=== PATIENT | female | born 1975 | race Caucasian/White ===

== ENCOUNTER 2019-06-23 10:22 | Emergency (ER) | payer OTHER ==
--- OUTSIDE RECORDS SUMMARY | 2019-06-23 10:29 | XMS REPORT | Continuity of Care Document ---
:1975 External Reference #:[id number] Author Name Mariola Chan PA Address [address] [facility] [place] [address] Care Team Providers Name Role Phone Jada Viramontes MD - Internal Medicine Care Team Information Field Account Manager Pili Leon MD - Neurology Care Team Information Field Account Manager [phone] Nery Solano MD - Physical Medicine Care Team Information Field Account Manager & Rehabilitation Pema Suazo NP, CNM - Nurse Care Team Information Field Account Manager Practitioner Joe Kang MD - Rheumatology Care Team Information Field Account Manager Problems Active Problems Provider Date Pure hypercholesterolemia Gui Jung M.D. Onset: 01/03/2015 Carpal tunnel syndrome Nery Solano MD Onset: 07/15/2015 Neck pain Nery Solano MD Onset: 07/15/2015 Moderate recurrent major depression Jada Viramontes MD Onset: 09/01/2015 Migraine with typical aura Jada Viramontes MD Onset: 09/01/2015 Mixed hyperlipidemia Jada Viramontes MD Onset: 09/01/2015 Localized, primary osteoarthritis Gui Jung M.D. Onset: 03/01/2016 Aftercare following joint replacement Gui Jung M.D. 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 Gabriel Herbert MD Onset: 09/16/2017 toxoplasmosis Elevated blood-pressure reading without Jessica Solares PA-C Onset: 09/2018 diagnosis of hypertension Migraine without aura, not refractory Pema Suazo, MS, Onset: 2018 LINE TECHNICIAN-C, CNM Social History Type Date Description Comments Sex Unknown Tobacco Use Start: Unknown Current Cigarette Smoker 1 Pack Daily Smokeless Tobacco Never Used Smokeless Tobacco ETOH Use Denies alcohol use Tobacco Use Start: Unknown Patient is a current Smokes 1/2 to 1 ppd smoker, smokes every day x 29 years Recreational Drug Use Denies Drug Use Smoking Status Reviewed: 05/29/19 Patient is a current Smokes 1/2 to 1 ppd smoker, smokes every day x 29 years Allergies, Adverse Reactions, Alerts Active Allergies Reaction Severity Comments Date Codeine throat swelling 01/03/2015 Cymbalta rash 01/03/2015 Benzonatate throat swelling 01/03/2015 Viibryd RASH,THROAT SWELLS rash, throat swelling 05/30/2015 Carlos Enrique-Tab Throat swells 05/30/2015 Paxil RASH 05/30/2015 Penicillins throat swelling 05/30/2015 Hydroxyzine Throat swelling 05/30/2015 Gabapentin Throat swelling 05/30/2015 Sumatriptan UNKNOWN 05/30/2015 Trazodone THROAT SWELLS 08/01/2016 Amoxicillin Throat Swelling 09/16/2017 Topiramate hives 09/03/2018 Medications Active Medications SIG Qnty Indications Ordering Date Provider Magnesium take one every day 30caps G43.001 Magali, 05/11/2019 500mg MD Nichole, Capsules PHD Polyethylene Glycol take one package (17 30units K59.00 Soraida Coburn, 3350 gm) with 10 oz of 3350NF Packet water every day for constipation prn Elbow Support Both left and right 2units M77.10 Wander, Jada, 12/02/2018 Left/Right for epicondylitis MD Gastelum Pantoprazole Sodium 1 by mouth every day 30tabs K21.0 Jada Viramontes, 09/[address] Vitamin B Complex take one every day 30tabs G43.001 Jada Viramontes, 2017 MD Tablets TENS Unit use daily as needed 1units M51.86 Jada Viramontes, 11/09/2016 for back pain and MD constantino M54.31 Gemfibrozil take one tablet by 60tabs Jada Viramontes MD 06/29/2015 600mg Tablets mouth twice a day,30 minutes before breakfast and dinner Verapamil HCL ER Take One Capsule By 30caps Jada Viramontes MD 05/30/2015 120mg Caps ER Mouth Every Day For 24HR Migraine Prophylaxis Vitamin D3 take one tablet by 60tabs Jada Viramontes MD 01/03/2015 1000Unit Tablets mouth twice a day Amitriptyline HCL take one tablet by 30tabs Nichole De Los Santos, 100mg Tablets mouth at bedtime , PHD Acetaminophen Extra 2 caps by mouth every Unknown Strength 4-6 hours as needed 500mg Capsules for pain or fever Fish Oil Take One Capsule By 60caps Jada Viramontes MD 500mg Capsules Mouth Twice A Day Wellbutrin XL take one every day 90tabs Unknown 150mg Tablets ER Naomy. 24HR History Medications Prednisone 4 by mouth daily 21tabs Jada Viramontes MD 04/13/2019 - 10mg Tablets x 2 days, then 3 04/21/2019 by mouth daily x 2 days, then 2 by mouth daily x 2 days, 1 by mouth daily x 3 days Medications Administered in Office Medication SIG Qnty Indications Ordering Provider Date Methylprednisolone Grace Whipple, 02/03/2016 (Depomedrol) 80mg injection RPAC Injection Verapamil 2.5MG/ML Nery Solano MD 11/23/2015 Injection Verapamil 2.5MG/ML Nery Solano MD 11/16/2015 Injection Verapamil 2.5MG/ML Nery Solano MD 11/09/2015 Injection Verapamil 2.5MG/ML Nery Solano MD 09/14/2015 Injection Verapamil 2.5MG/ML Nery Solano MD 09/07/2015 Injection Verapamil 2.5MG/ML Nery Solano MD 08/31/2015 Injection Immunizations CPT Code Status Date Vaccine Reaction Lot # [id number] Given 04/08/2018 Influenza Virus Vaccine, Quadrivalent, 36 [id number] Mos+, .[id number] [id number] Given 09/11/2017 Influenza Virus Vaccine Quadrivalent Iiv4 [place] [id number] [address] Given 09/06/2016 Tdap injection [id number] Given 04/10/2016 Influenza Virus Vaccine Split Virus Use For Individual 3Yr Older Vital Signs Date Vital Result Comment 05/29/2019 11:25am BP Systolic Sitting Left Arm 132 mmHg BP Diastolic Sitting Left Arm 92 mmHg Body Temperature 98.7 F Heart Rate 92 /min Respiratory Rate 22 /min Height 63.5 inches 5'3.50" Weight 163.00 lb BMI (Body Mass Index) 28.4 kg/m2 BSA (Body Surface Area) 1.78 m2 [place] body weight in kilograms 53 kg O2 % BldC Oximetry 100 % Ra 04/03/2019 1:31pm BP Systolic Sitting Left Arm 142 mmHg BP Diastolic Sitting Left Arm 78 mmHg Body Temperature 98.2 F Heart Rate 92 /min Respiratory Rate 20 /min Height 63.5 inches 5'3.50" Weight 165.00 lb BMI (Body Mass Index) 28.8 kg/m2 BSA (Body Surface Area) 1.79 m2 [place] body weight in kilograms 53 kg O2 % BldC Oximetry 97 % Results Test Acquired Date Facility Test Result H/L Range Note CBC 04/04/2019 [facility] White Blood 9.8 K/uL Normal 3.1-10.7 1 W/Automated [address] Count Diff [place], [place] [id number] [phone] Red Blood Count 6.32 M/uL High 3.90-5.40 Hemoglobin 12.2 gm/dL Normal 11.6-15.8 Hematocrit 40.4 % Normal 36.0-46.1 Mean Cell Volume 63.9 fl Low 80.9-99.0 Mean Corpuscular HGB 19.3 pg Low 25.9-32.7 Mean Corpuscular HGB Conc 30.2 g/dL Low 30.8-34.3 Platelet Count 371 K/uL High 155-360 Red Cell Distri Width SD 37.0 fl Normal 36-47 Red Cell Distri Width %CV 18.3 % High 11.7-14.4 Mean Platelet Volume 10.4 fl Normal 8.9-12.4 Neut% 67.1 % Normal 40.4-72.8 Lymph % 24.5 % Normal 20.0-42.0 [place] % 4.2 % Low 4.3-13.2 Eo% 3.0 % Normal 0.0-6.6 Bas% 0.7 % Normal 0.0-1.1 Immature Grans 0.5 % Normal 0.0-5.0 NRBC % 0.0 /100WBC < 10/ 100 WBC Neut# 6.60 K/uL Normal 1.8-7.0 Lymph # 2.41 K/uL Normal 1.0-4.0 [place] # 0.41 K/uL Normal 0.3-0.9 Eos # 0.29 K/uL Normal 0.0-0.5 Baso # 0.07 K/uL Normal 0.0-0.1 Immature Grans Absolute 0.05 K/uL NRBC # 0.00 K/uL Laboratory test 04/04/2019 [facility] Rheumatoid < 10.0 Normal 0.0-15.[address] Factor Screen IU/[place] [address] [phone] Systemic Lupus 04/04/2019 [facility] Ra Latex <10.0 0.0-13.[address] Profil [address] Turbid. IU/[place] [address] [phone] Anti-Dna Antibody ([place]) <1 IU/mL 0-9 2 SM Antibody <0.2 AI 0.0-0.9 TEAR DOWN WORKER Antibody <0.2 AI 0.0-0.9 Sjogrens Antibodies (Ssa) <0.2 AI 0.0-0.9 Antichromatin Antibodies <0.2 AI 0.0-0.9 Sjogrens Antibodies (SSB) <0.2 AI 0.0-0.9 Laboratory test 04/04/2019 [facility] Sedimentation Rate 54 mm/hr High 2-40 [address] [place] [address] [phone] C-Reactive Protein,Quant 13.9 mg/L High <3.0 Comprehensive 04/04/2019 [facility] Glucose 99 mg/dL Normal 74-106 Metabolic Panel [address] [place], [place] [id number] [phone] BUN 14 mg/dL Normal 7-18 Creatinine 0.9 mg/dL Normal 0.6-1.3 Glom Filtration Rate, Estimate >60 mL/min >60 If >60 mL/min >60 4 BUN/Creat 15.5 ratio Sodium 138 mmol/L Normal 136-145 Potassium 3.9 mmol/L Normal 3.5-5.1 Chloride 103 mmol/L Normal 98-107 Carbon Dioxide 25 mmol/L Normal 21-32 Anion Gap 10 mEq/L Normal 8-16 Calcium 9.3 mg/dL Normal 8.5-10.1 Total Protein 8.3 g/dL High 6.4-8.2 Albumin 4.3 g/dL Normal 3.4-5.0 Globulin 4.0 g/dL Normal 1.9-4.3 Alb/Glob 1.1 ratio Bilirubin,Total 0.4 mg/dL Normal 0.2-1.0 Sgot/Ast 19 U/L Normal 15-37 SGPT/Alt 39 U/L Normal 12-78 Alkaline Phosphatase 90 U/L Normal 45-117 Slide Review 04/04/2019 [facility] Slide Review . [address] [place] [address] [phone] RBC Morphology Only 04/04/2019 [facility] Polychromasia 0-1+ [address] [place], [place] [id number] [phone] Hypochromia 1+ Poikilocytosis 1+ Anisocytosis 1+ Microcytosis 1+ Macrocytosis 0-1+ Schistocytes 0-1+ Tear Drop Cells 0-1+ Stomatocyte 0-1+ Lyme Igg & Igm By 04/04/2019 [facility] Lyme AB Igg By Western . Western Blot [address] [place], [place] [address] [phone] P93 AB Absent . P66 AB Absent . P58 AB Absent . P45 AB Absent . P41 AB Absent . P39 AB Absent . P30 AB Absent . P28 AB Absent . P23 AB Absent . P18 AB Absent . Lyme Igg WB Interpretation Negative . 6 Lyme AB Igm By Western Blot . P41 AB Absent . P39 AB Absent . P23 AB Absent . Lyme Igm WB Interpretation Negative . 7 Slide Review 12/03/2018 [facility] Slide Review (SEE NOTE) 8, [address] [place] [address] [phone] Laboratory test 12/03/2018 [facility] Magnesium 1.9 mg/dL Normal 1.8-[address] [place], [place] [address] [phone] Vitamin B12 And 12/03/2018 [facility] Vitamin B12 376 pg/mL Normal 193-[address] [place] [address] [phone] Folic Acid > 20.0 ng/mL High 3.1-17.5 Glycohemoglobin 12/03/2018 [facility] Glycohemoglobin 5.9 % Normal 4.2-6.[address] (A1c) [place], [place] [address] [phone] eAG 123 mg/dL Comprehensive Metabolic 12/03/2018 [facility] Glucose 111 mg/dL High 74-[address] [place] [address] [phone] BUN 15 mg/dL Normal 7-18 Creatinine 1.0 mg/dL Normal 0.6-1.3 Glom Filtration Rate, Estimate >60 mL/min >60 If >60 mL/min >60 11 BUN/Creat 15.0 ratio Sodium 136 mmol/L Normal 136-145 Potassium 4.2 mmol/L Normal 3.5-5.1 Chloride 103 mmol/L Normal 98-107 Carbon Dioxide 25 mmol/L Normal 21-32 Anion Gap 8 mEq/L Normal 8-16 Calcium 9.6 mg/dL Normal 8.5-10.1 Total Protein 8.0 g/dL Normal 6.4-8.2 Albumin 4.3 g/dL Normal 3.4-5.0 Globulin 3.7 g/dL Normal 1.9-4.3 Alb/Glob 1.2 ratio Bilirubin,Total 0.4 mg/dL Normal 0.2-1.0 Sgot/Ast 20 U/L Normal 15-37 SGPT/Alt 36 U/L Normal 12-78 Alkaline Phosphatase 81 U/L Normal 45-117 LDL Cholesterol Profile 12/03/2018 [facility] Cholesterol 194 mg/dL <[address] [place] [address] [phone] Triglycerides 186 mg/dL High <150 13 HDL Cholesterol 30 mg/dL Low >40 14 LDL-Cholesterol 127 mg/dL < 100 15 Laboratory 12/03/2018 [facility] Vitamin 30.9 30.0-100.0 16 test finding [address] D,25-Hydroxy ng/[place] [address] [phone] CBC 12/03/2018 [facility] White Blood 9.0 K/uL Normal 3.1-10.7 W/Automated [address] [place] [address] [phone] Red Blood Count 6.10 M/uL High 3.90-5.40 Hemoglobin 12.1 gm/dL Normal 11.6-15.8 Hematocrit 38.9 % Normal 36.0-46.1 Mean Cell Volume 63.8 fl Low 80.9-99.0 Mean Corpuscular HGB 19.8 pg Low 25.9-32.7 Mean Corpuscular HGB Conc 31.1 g/dL Normal 30.8-34.3 Platelet Count 347 K/uL Normal 155-360 Red Cell Distri Width SD 36.6 fl Normal 36-47 Red Cell Distri Width %CV 17.9 % High 11.7-14.4 Mean Platelet Volume 10.5 fl Normal 8.9-12.4 Neut% 65.2 % Normal 40.4-72.8 Lymph % 25.4 % Normal 20.0-42.0 [place] % 5.2 % Normal 4.3-13.2 Eo% 2.8 % Normal 0.0-6.6 Bas% 0.7 % Normal 0.0-1.1 Immature Grans 0.7 % Normal 0.0-5.0 NRBC % 0.0 /100WBC < 10/ 100 WBC Neut# 5.87 K/uL Normal 1.8-7.0 Lymph # 2.28 K/uL Normal 1.0-4.0 [place] # 0.47 K/uL Normal 0.3-0.9 Eos # 0.25 K/uL Normal 0.0-0.5 Baso # 0.06 K/uL Normal 0.0-0.1 Immature Grans Absolute 0.06 K/uL NRBC # 0.00 K/uL 1 M54.16 F33.1 R53.83 2 Negative <5 Equivocal 5 - 9 Positive >9 3 This result was obtained with an ESR method that is not based on the standard Westergren Method. When comparing results obtained from the traditional Westergren ESR and this method it is important to refer to the reference range for each method. Method: Capillary Photometry 4 Note: Persistent reduction for 3 months or more in an eGFR <60 mL/min/1.73 m2 defines CKD. Patients with eGFR values >/=60 mL/min/1.73 m2 may also have CKD if evidence of persistent proteinuria is present. The original MDRD equation for estimated GFR is not valid for patients less than 18 years of age. Additional information may be found at www.kdoqi.org. 5 Instrument flagged sample for slide review. Less than 10% Bands seen, no other immature WBC's seen. Platelet estimate = NORMAL 6 Positive: 5 of the following [place]-specific bands: 18,23,28,30,39,41,45,58, 66, and 93. Negative: No bands or banding patterns which do not meet positive criteria. 7 Note: An equivocal or positive EIA result followed by a negative Line Blot result is considered NEGATIVE. An equivocal or positive EIA result followed by a positive Line Blot is considered POSITIVE by the CDC. Positive: 2 of the following bands: 23,39 or 41 Negative: No bands or banding patterns which do not meet positive criteria. Criteria for positivity are those recommended by CDC/ASTPHLD. p23=Osp C, n99=mukdldkvm Note: Sera from individuals with the following may cross react in the [place] Line Blot assays: other spirochetal diseases (periodontal disease, leptospirosis, relapsing fever, yaws, and pinta); connective autoimmune (Rheumatoid Arthritis and Systemic Lupus Erythematosus and also individuals with Antinuclear Antibody); other infections (Kinnelon Spotted Fever; Ryan-Kessler Virus, and Cytomegalovirus). Performed at: - [facility] [address] [id number] Activity Aid: Purvi Dunn MD, Phone: [phone] 8 J21.99,INC FINDINGS,D50.9 E55.9 E78.2 R73.9 K21.0 9 Instrument flagged sample for slide review. Less than 10% Bands seen, no other immature WBC's seen. RBC morphology essentially normal. Platelet estimate = NORMAL 10 Elevated levels of HbA1c suggest the need for more aggressive treatment of glycemia. The [place] Diabetes Association recommends that a primary goal of therapy should be a HbA1c of <7% and that physicians should re-evaluate the treatment regimen in patients with HbA1c values consistently >8%. 11 Note: Persistent reduction for 3 months or more in an eGFR <60 mL/min/1.73 m2 defines CKD. Patients with eGFR values >/=60 mL/min/1.73 m2 may also have CKD if evidence of persistent proteinuria is present. The original MDRD equation for estimated GFR is not valid for patients less than 18 years of age. Additional information may be found at www.kdoqi.org. 12 Reference Guidelines*: Desirable: ........... < 200 mg/dL Borderline High: ..... 200-239 mg/dL High: ................ >= 240 mg/dL * The National Cholesterol Education Program (NCEP) 13 Reference Guidelines*: Normal: ............. < 150 mg/dL Borderline High: .... 150-199 mg/dL High: ............... 200-499 mg/dL Very High: .......... > 500 mg/dL * Source: National Cholesterol Education Program (NCEP) 14 Reference Guidelines*: Low HDL: ..... < 40 mg/dL Normal: ..... 40-60 mg/dL Desirable: ... > 60 mg/dL *The National Cholesterol Education Program(NCEP) 15 Reference Guidelines*: Optimal:........... <100 mg/dL Near Optimal....... 100-129 mg/dL Borderline High.... 130-159 mg/dL High............... 160-189 mg/dL Very High.......... >=190 mg/dL * Source: National Cholesterol Education Program (NCEP) 16 Vitamin D deficiency has been defined by the [place] of [employer] and an Endocrine Society practice guideline as a level of serum 25-OH vitamin D less than 20 ng/mL (1,2). The Endocrine Society went on to further define vitamin D insufficiency as a level between 21 and 29 ng/mL (2). 1. IOM ([place] of Medicine). 2010. Dietary reference intakes for calcium and D. [place]: The National Academies Press. 2. Kimo MF, Raquel ENRIQUEZ, Tiffanie KAUR, et al. Evaluation, treatment, and prevention of vitamin D deficiency: an Endocrine Society clinical practice guideline. JCEM. 2010; 96(7):1911-30. Performed at: RN - [facility] [address] [id number] Activity Aid: Purvi Dunn MD, Phone: [phone] Procedures Date Code Description Status 12/03/2018 23917387 Mammogram Completed 12/02/2018 99515 Brief Emotional/Behav Assessment W/ Scoring Doc Per Completed Standard Inst 06/15/2015 [id number] Mammogram Completed Medical Devices Description No Information Available Encounters Type Date Location Provider Dx Diagnosis Office Visit 05/29/2019 Primary Care Mariola Chan R23.8 Other skin changes 11:30a Office NIGHAT Chao F41.9 Anxiety disorder, unspecified M54.5 Low back pain Office Visit 04/03/2019 1:30p Primary Care Dustin M54.16 Radiculopathy , Office NIGHAT Albert lumbar region M54.5 Low back pain Office Visit 12/02/2018 Primary Care Gabriele K21.0 Gastro-esophageal 11:30a Office MS Pema, reflux disease with LINE TECHNICIAN-C, CNM esophagitis E55.9 Vitamin D deficiency, unspecified R20.2 Paresthesia of skin D50.9 Iron deficiency anemia, unspecified R73.9 Hyperglycemia, unspecified E78.2 Mixed hyperlipidemia G43.001 Migraine w/o aura, not intractable, with status migrainosus F17.210 Nicotine dependence, cigarettes, uncomplicated F33.1 Major depressive disorder, recurrent, moderate M77.10 Lateral epicondylitis, unspecified elbow Assessments Date Code Description Provider 05/29/2019 R23.8 Other skin changes Mariola Chan, PA 05/29/2019 F41.9 Anxiety disorder, unspecified Mariola Chan, NIGHAT 05/29/2019 M54.5 Low back pain Mariola Chan, PA 04/03/2019 M54.16 Radiculopathy, lumbar region Mariola Chan, NIGHAT 04/03/2019 M54.5 Low back pain Mariola Chan, PA 12/02/2018 K21.0 Gastro-esophageal reflux disease Gagen, Pema, MS, LINE TECHNICIAN -C, with esophagitis [facility] 12/02/2018 E55.9 Vitamin D deficiency, unspecified Gagen, Pema, MS, LINE TECHNICIAN-C, [facility] 12/02/2018 R20.2 Paresthesia of skin Gagen, Pema, MS, LINE TECHNICIAN-C, [facility] 12/02/2018 D50.9 Iron deficiency anemia, unspecified Gagen, Pema, MS, LINE TECHNICIAN-C, [facility] 12/02/2018 R73.9 Hyperglycemia, unspecified Gagen, Pema, MS, LINE TECHNICIAN-C, [facility] 12/02/2018 E78.2 Mixed hyperlipidemia Gagen, Pema, MS, LINE TECHNICIAN-C, [facility] 12/02/2018 G43.001 Migraine without aura, not Gagen, Pema, MS, LINE TECHNICIAN-C, intractable, with status migraino [facility] 12/02/2018 F17.210 Nicotine dependence, cigarettes, Gagen, Pema, MS, LINE TECHNICIAN-C, uncomplicated [facility] 12/02/2018 F33.1 Major depressive disorder, Gagen, Pema, MS, LINE TECHNICIAN-C, recurrent, moderate [facility] 12/02/2018 M77.10 Lateral epicondylitis, unspecified Gagen, Pema, MS, LINE TECHNICIAN-C, elbow [facility] Plan of Treatment 05/29/2019 - Mariola Chan, PAR23.8 Other skin changesComments:Small subcutaneous skin change to area under right armpit. This does NOT correspond to sweat gland or hair follicle. Suspect this is related to irritation from underwire bra.Recommend changing bra to either sports bra or avoid wearing bra.No evidence of any infection.F41.9 Anxiety disorder, unspecifiedComments: Anxiety/Depression. Moderate to severe symptoms noted.Pt has upcoming visit with her psychiatrist who manages all medicationsFollow up:Follow-up with mental health as recommended. Recommend f/u with PCP here in next 1-2 [id number] Low back painComments:Continue care with ortho.Has upcoming visit with rheumatology for evaluationAllComments:Pt with DSS form to be filled out regarding her employability.Discussed with pt. From my standpoint,this form should be done by her specialist and determinations on work based on their recommendations. Functional Status Functional Condition Comment Date Status Independent with all ADL's Active Mental Status Description No Information Available Referrals Refer to Reason for Referral Status Appt Date Joe Kang MD Diffuse muscle aches/weakness. ESR/CRP Scheduled 2018 elevated. NICOLE, Rh, Sjorgen's normal. Eval and treat. Pt unavailable Sat, Sat. Prefers appt Mon,Tues, thurs between -04/16/19 faxed notes... [facility] [address] [place] [id number] [phone]
--- OUTSIDE RECORDS SUMMARY | 2019-06-23 10:29 | XMS REPORT | Summary of Care ---
:1975 Author Organization [facility] Address [address] [place] [address] Care Team Providers Name Role Phone Mariola Chan Primary Care Provider Reason for Referral Procedure/Treatment (Routine) Status Reason Specialty Diagnoses / Referred By Referred To Procedures Contact Contact Authorized Specialty Neurology Diagnoses Paresthesia Chronic pain disorder Felix Bishop, Services Procedures Autonomic MD Joe [facility] 90 Presidential MD [place] [address] 2nd Floor [address] [address] Phone: Fax: Email: [phone] [email or web address]. Email: [email or web address] Reason for Visit Reason Comments New Patient Diagnostic Medical (Routine) Status Reason Specialty Diagnoses / Referred By Referred To Contact Procedures Contact Authorized Rheumatology Diagnoses CRP elevated Muscle weakness (generalized) diffuse muscle acheds esr/crp elevated nicole NEEDS MOND TUES THRUS APPTS. aDrio Chan, Procedures NEW PATIENT NIGHAT Zambrano MD [address] [facility] KEANU Gallegos [address] [address] Phone: [place] [address] Fax: Email: [email or web address] Encounter Details Date Type Department Care Team Description 06/09/2019 Office Visit [facility] Rheumatology Fer Bishop (Primary Dx); [address] Rafa Diaz [place] [address] Presidential Addy [phone] [address] [place] [address] [phone] Allergies Active Allergy Reactions Severity Noted Date Comments Amoxicillin Swelling High 01/04/2015 Throat swelling Benzonatate 05/18/2019 Codeine Phosphate Swelling High 01/04/2015 Cyclobenzaprine 05/18/2019 Duloxetine Hcl Rash Low 01/04/2015 Erythromycin 05/18/2019 Gabapentin Swelling High 09/25/2016 Throat swelling Hydroxyzine Other (See Comments) Medium 01/04/2015 Severe migraines Methylprednisolone 05/18/2019 Paroxetine Hcl Swelling High 09/25/2016 Throat swelling Penicillins 05/18/2019 Sumatriptan Anaphylaxis High 05/30/2015 Topiramate 05/18/2019 Tramadol 05/18/2019 Vilazodone Hcl Anaphylaxis High 05/30/2015 documented as of this encounter (statuses as of 06/11/2019) Medications Medication Sig Dispensed Refills Start Date End Date Status Cholecalciferol Take 2,000 0 Active (VITAMIN D) 1000 Units by UNITS tablet mouth daily gemfibrozil (LOPID) Take 600 mg 0 08/27/2015 Active 600 MG tablet by mouth Two Times Daily amitriptyline Take 125 mg 0 09/07/2016 Active (ELAVIL) 100 MG by mouth tablet nightly buPROPion (WELLBUTRIN Take 150 mg 1 09/04/2016 Active XL) 150 MG 24 hr by mouth tablet every morning verapamil (VERELAN Take 120 mg 0 09/24/2016 Active PM) 120 MG 24 hr by mouth capsule daily pantoprazole 20 mg 3 10/27/2016 Active (PROTONIX) 40 MG tablet Higden-3 Fatty Acids TAKE ONE 3 03/11/2017 Active (FISH OIL) 500 MG CAPSULE BY CAPS MOUTH TWICE A DAY MAGNESIUM CARBONATE Take by mouth 0 Active PO B Complex Vitamins (B Take by mouth 0 Active COMPLEX PO) Magnesium Gluconate Take by mouth 0 Active (MAG-G PO) Cyanocobalamin Take by mouth 0 Discontinued (VITAMIN B-12 CR PO) 9 documented as of this encounter (statuses as of 06/11/2019) Active Problems Problem Noted Date Status post revision of total replacement of right knee 08/21/2017 Chronic infection of right knee 06/24/2017 Acute blood loss anemia 05/10/2017 OA (osteoarthritis) of knee 05/09/2017 S/P revision of total knee, right 04/09/2017 Acute blood loss as cause of postoperative anemia 02/15/2017 Infection of prosthetic right knee joint 02/14/2017 S/P revision of total knee 12/17/2016 Infection of total right knee replacement 12/17/2016 Chronic pain of right knee 12/17/2016 Closed fracture of metacarpal of right hand 01/17/2015 Sickle cell anemia with coexistent alpha-thalassemia Hyperlipidemia GERD (gastroesophageal reflux disease) Depression documented as of this encounter (statuses as of 06/11/2019) Social History Tobacco Use Types Packs/Day Years Used Date Current Every Day Smoker Cigarettes 0.5 29 Smokeless Tobacco: Never Used Tobacco Cessation: Ready to Quit: No; Counseling Given: No Alcohol Use Drinks/Week oz/Week Comments No Sex Assigned at Date Recorded Not on file Job Start Date Occupation Industry Not on file Not on file Not on file Travel History Travel Start Travel End No recent travel history available. documented as of this encounter Last Filed Vital Signs Vital Sign Reading Time Taken Comments Blood Pressure 156/91 06/09/2019 11:01 AM EST Pulse 81 06/09/2019 11:01 AM EST Temperature 36.4 06/09/2019 11:01 AM EST C (97.5 F) Respiratory Rate 17 06/09/2019 11:01 AM EST Oxygen Saturation 96% 06/09/2019 11:01 AM EST Inhaled Oxygen Concentration - - Weight 76.7 kg (169 lb) 06/09/2019 11:01 AM EST Height 160 cm (5' 3") 06/09/2019 11:01 AM EST Body Mass Index 29.94 06/09/2019 11:01 AM EST documented in this encounter Progress Notes Joe Bishop MD - 06/09/2019 11:00 AM EST Subjective: Patient ID: Arely Garcia is a 43 y.o. female. She has a 6-month history of paresthesias in upper extremities, localized mostly in her shoulders upto her elbows, associated with subjective weakness, not as bad as incapacitating the patient, but making for her difficult to open jars. More recently, in the past 3 months, she has developed similar symptoms in her lower extremities, and even more recently she describes episodes of a few minutes duration of whole body numbness that "paralyzes" her for 5-6 minutes , and that happens once or twice perday. The patient is known to have disk disease in her cervical spine, and also has a history of a knee replacement in relationship to an old traumatic injury. Due to her symptoms, the patient was prescribed steroids by her primary care provider, which did not improve her symptoms. In her rheumatologic review of systems, it is otherwise unremarkable. The patient does describe a feeling as "being dehydrated." I reviewed blood work done through her primary care provider. It was essentially unremarkable, except for an elevation in the sedimentation rate and the CRP. The sedimentation rate was inthe 50s. CRP was 13.9. Rheumatoid factor was negative. NICOLE was negative. Metabolic panel was normal. Test for Lyme was negative. On musculoskeletal exam, the patient does not have any active synovitis. ASSESSMENT: 1. The patient has what seems to be mostly paresthesias affecting initially upper extremities and now lower extremities. Etiology for the symptoms still is unclear. Possibilities include fibromyalgiaversus small fiber neuropathy versus nerve impingement due to arthritis in the neck versus neuropathic symptoms related to disk bulging in her neck. PLAN: 1. I will do a comprehensive rheumatologic workup today including rheumatoid factor, CCP, sedimentation rate, CK, aldolase, TSH. 2. I will refer her to Dr. Washington for evaluation of small fiber neuropathy. 3. I will not schedule a followup appointment for now, but I will call the patient with results of workup next week. I also reviewed the following at length: -Notes from PCP's and other providers. -Labs done at PCP's and other provider's office. -Xrays and other radiologic images done in outside facilities. -Patient history form filled up by the patient. -Past medical history and problems documented by other physicians. Results for orders placed or performed in visit on 06/09/19 CK Result Value Ref Range CK 55 20 - 180 U/L TSH Result Value Ref Range TSH 1.270 0.270 - 4.200 u[IU]/mL NICOLE Result Value Ref Range Homogeneous Pattern <50 0 - 49 1/dil Speckled Pattern <50 0 - 49 1/dil Peripheral Pattern <50 0 - 49 1/dil NICOLE,Nucleolar pattern <50 0 - 49 1/dil Sedimentation rate, automated Result Value Ref Range Sed Rate - ESR 28 (H) <20 mm/hr Creatinine with GFR Result Value Ref Range Creatinine 0.81 0.50 - 0.90 mg/dL GFR Non 2008 CDK-EPI 87 >60 mL/min/1.73m2 GFR 2008 CKD-EPI >90 >60 mL/min/1.73m2 C-reactive protein Result Value Ref Range C Reactive Protein 11.1 (H) <8.0 mg/L CBC and Differential Result Value Ref Range White Blood Cell 10.0 4 - 10 10*3/uL Red Blood Cell 6.05 (H) 4.1 - 5.3 10*6/uL Hemoglobin 11.6 11.5 - 15.5 g/dL Hematocrit 37.2 36 - 45 % Mean Cell Volume 61.4 (L) 80 - 96 fL Mean Cell Hemoglobin 19.2 (L) 27 - 33 pg Mean Cell Hgb Conc 31.2 (L) 32.0 - 36.0 g/dL Red Cell Dist Width 16.4 (H) 11.5 - 14.5 % Platelet Count 355 150 - 400 10*3/uL Differential Type Manual Diff Neutrophil 69 % Lymphocyte 21 % Monocyte 2 % Eosinophil 3 % Basophil 3 % Abs Neutrophil 6.95 1.8 - 7.0 10*3/uL Abs Lymphocyte 2.10 1.2 - 4.0 10*3/uL Abs Monocyte 0.19 0 - 0.8 10*3/uL Abs Eosinophil 0.29 0 - 0.5 10*3/uL Abs Basophil 0.29 (H) 0 - 0.2 10*3/uL Atypical Lymphocytes 2 % Abs Atyp Lymph 0.19 (H) 0 10*3/uL Elliptocytes 1+ Poikilocytosis 1+ AST Result Value Ref Range AST/SGO 15 <32 U/L ALT Result Value Ref Range ALT/SGP 19 <33 U/L Rheumatoid factor Result Value Ref Range Rheumatoid factor <10 <14 IU/ml Normal results except for mild elevation in inflammatory markers. No evidence of rheumatologic disease causing her symptoms. Will wait for neurologic evaluation. Results relayed to patient. HPI Arely has a past medical history of Anxiety, Arthritis, Depression, GERD ( gastroesophageal reflux disease), Headache(784.0), Herniated cervical disc, Hyperlipidemia, Low back pain, Lumbar herniated disc, Sciatica of right side, Sepsis (09/2016), and Sickle cell anemia with coexistent alpha-thalassemia. Arely has a past surgical history that includes Tubal ligation; Hand surgery ( Right); Knee surgery (Right); nerve block; Endometrial ablation; Multiple tooth extractions; pr removal of knee prosthesis(Right, 02/14/2017); pr revise knee joint replace,all parts (Right, 05/09/2017); Joint replacement (Right, 05/14/2016 ); Joint replacement (Right, 10/04/2016); Joint replacement (Right, 02/14/2017) ; and Joint replacement (Right, 05/09/2017). Her family history includes COPD in her mother; Diabetes in her father; Heart disease in her father;Other in her mother; Stroke in her father. Arely reports that she has been smoking cigarettes. She has a 14.50 pack-year smoking history. She has never used smokeless tobacco. She reports that she does not drink alcohol or use drugs. Arely has a current medication list which includes the following prescription(s) : amitriptyline, b complex vitamins, bupropion, vitamin d, gemfibrozil, magnesium carbonate, magnesium gluconate, fish oil, pantoprazole, verapamil, and cyanocobalamin. Arely is allergic to amoxicillin; codeine phosphate; gabapentin; paxil [ paroxetine hcl]; sumatriptan; viibryd [vilazodone hcl]; hydroxyzine; benzonatate ; cyclobenzaprine; kodak-tab [erythromycin]; medrol[methylprednisolone]; penicillins; topiramate; tramadol; and cymbalta [duloxetine hcl]. Review of Systems Constitutional: Negative. HENT: Negative. Eyes: Negative. Respiratory: Negative. Cardiovascular: Negative. Gastrointestinal: Negative. Endocrine: Negative. Genitourinary: Negative. Musculoskeletal: Positive for arthralgias and joint swelling. Skin: Negative. Negative for color change and rash. Allergic/Immunologic: Negative. Neurological: Positive for dizziness, weakness, light-headedness and numbness. Hematological: Negative. Psychiatric/Behavioral: Negative. Objective: Physical Exam Vitals signs reviewed. Constitutional: Appearance: She is well-developed. HENT: Head: Normocephalic and atraumatic. Eyes: Conjunctiva/sclera: Conjunctivae normal. Neck: Thyroid: No thyromegaly. Trachea: No tracheal deviation. Cardiovascular: Rate and Rhythm: Normal rate and regular rhythm. Pulmonary: Effort: Pulmonary effort is normal. No respiratory distress. Musculoskeletal: General: No swelling or tenderness. Skin: General: Skin is warm and dry. Neurological: Mental Status: She is alert and oriented to person, place, and time. documented in this encounter Plan of Treatment Date Type Specialty Care Team Description 11/23/2019 Office Visit Orthopedic Surgery Poncho Abreu MD [address] [place] [address] [phone] Name Type Priority Associated Diagnoses Date/Time CCP antiBody Lab Routine Paresthesia 06/09/2019 11:21 AM EST Chronic pain disorder Aldolase Lab Routine Paresthesia 06/09/2019 11:21 AM EST Chronic pain disorder Name Type Priority Associated Diagnoses Order Schedule CCP antiBody Lab Routine Paresthesia 1 Occurrences starting Chronic pain disorder 06/09/2019 until 12/08/2019 Aldolase Lab Routine Paresthesia 1 Occurrences starting Chronic pain disorder 06/09/2019 until 12/09/2019 Name Type Priority Associated Diagnoses Order Schedule Referral to Outpatient Referral Routine Paresthesia Ordered: Neurology Chronic pain 06/09/2019 disorder Health Maintenance Due Date Last Done Comments MMR Vaccines (1 of 1 - Standard 12/07/1975 series) Pneumococcal Vaccine: Pediatrics 1980 (0 to 5 Years) and At-Risk Patients (6 to 64 Years) (1 of 3 - PCV13) DTaP,Tdap,and Td Vaccines (1 - 1981 Tdap) HIV Screening 12/07/1987 Varicella Vaccines (1 of 2 - 13+ 12/07/1987 2-dose series) Cervical Cancer Screening 5 years 12/07/1995 Influenza Vaccine 04/07/2019 Pneumococcal Vaccine: 65+ Years (1 12/07/2039 of 2 - PCV13) HIB Vaccines Aged Out No longer eligible based on patient's age to complete this topic Hepatitis A Vaccines Aged Out No longer eligible based on patient's age to complete this topic Hepatitis B Vaccines Aged Out No longer eligible based on patient's age to complete this topic IPV Vaccines Aged Out No longer eligible based on patient's age to complete this topic documented as of this encounter Implants Implanted Type Area [employer] Device Shelf Model / Identifier Expiration Serial / Date Lot Nail Fem T2 [id number] - [id number] Right: [employer] 04/06/2021 [id number] / Implanted: Qty: 1 on 02/14/2017 by Poncho Abreu MD at [place] [employer] / [id number] Cement Bone Simplexw/Tobra - [id number] Right: [employer] 07/07/2018 [id number] -[id number] / Implanted: Qty: 1 on 02/14/2017 by Poncho Abreu MD at [place] [employer] / [id number] Cement Bone Simplexw/Tobra - [id number] Right: [employer] 05/07/2018 6197-9 -[id number] / Implanted: Qty: 2 on 02/14/2017 by Poncho Abreu MD at [place] [employer] / [id number] Baseplate Ts Triathlon #3 - [id number] Right: [employer] 05/01/2022 5521-B- 300 / Implanted: Qty: 1 on 05/09/2017 by Poncho Abreu MD at [place] [employer] / [id number] Insert Stabilizer Tibtriathlonx3 - [id number] Right: [employer] 04/25/2020 5537-G-311 / Implanted: Qty: 1 on 05/09/2017 by Poncho Abreu MD at [place] [employer] / [id number] Patella Symmetric 9x33mm - [id number] Right: [employer] 03/27/2020 5551-G- 299 / Implanted: Qty: 1 on 05/09/2017 by Poncho Abreu MD at [place] [employer] / [id number] Plug Bone Artisan Sml. - [id number] Right: [employer] 02/17/2022 6215-5- 001 / Implanted: Qty: 1 on 05/09/2017 by Poncho Abreu MD at [place] [employer] / [id number] Cement Bone Simplexw/Tobra - [id number] Right: [employer] 09/04/2018 [id number] -[id number] / Implanted: Qty: 2 on 05/09/2017 by Poncho Abreu MD at [place] [employer] / [id number] Stem Triathlon Semaj [id number] - [id number] Right: [employer]ANY 09/04/2018 5560-S -209 / Implanted: Qty: 1 on 05/09/2017 by Poncho Abreu MD at [place] [employer] / [id number] Stem Press-Fit [id number] Tstriathlon - [id number] Right: [employer] 2020 5565-S-015 / Implanted: Qty: 1 on 05/09/2017 by Poncho Abreu MD at [place] [employer] / [id number] Femoral Ts Triathlon #4 Rt - [id number] Right: [employer] 02/05/2022 5512-F -402 / Implanted: Qty: 1 on 05/09/2017 by Poncho Abreu MD at [place] [employer] / [id number] Comp Fem Aug Dist Rt #4 5mmtriathlon - [id number] Right: [employer]ANY 2020 5540-A-402 / Implanted: Qty: 1 on 05/09/2017 by Poncho Abreu MD at [place] [employer] / [id number] Comp Fem Aug Post #4 5mmtriathlon - [id number] Right: [employer]OVANY 01/04/2019 5543-A-400 / Implanted: Qty: 1 on 05/09/2017 by Poncho Abreu MD at [place] [employer] / [id number] documented as of this encounter Procedures Procedure Name Priority Date/Time Associated Comments Diagnosis CREATININE WITH GFR Routine 06/09/2019 11:21 Paresthesia Results for this AM EST Chronic pain procedure are in disorder the results section. SEDIMENTATION RATE, Routine 06/09/2019 11:21 Paresthesia Results for this AUTOMATED AM EST Chronic pain procedure are in disorder the results section. CBC AND DIFFERENTIAL Routine 06/09/2019 11:21 Paresthesia Results for this AM EST Chronic pain procedure are in disorder the results section. RHEUMATOID FACTOR Routine 06/09/2019 11:21 Paresthesia Results for this AM EST Chronic pain procedure are in disorder the results section. C-REACTIVE PROTEIN Routine 06/09/2019 11:21 Paresthesia Results for this AM EST Chronic pain procedure are in disorder the results section. NICOLE Routine 06/09/2019 11:21 Paresthesia Results for this AM EST Chronic pain procedure are in disorder the results section. ALT Routine 06/09/2019 11:21 Paresthesia Results for this AM EST Chronic pain procedure are in disorder the results section. AST Routine 06/09/2019 11:21 Paresthesia Results for this AM EST Chronic pain procedure are in disorder the results section. TSH Routine 06/09/2019 11:21 Paresthesia Results for this AM EST Chronic pain procedure are in disorder the results section. CK Routine 06/09/2019 11:21 Paresthesia Results for this AM EST Chronic pain procedure are in disorder the results section. documented in this encounter Results CK (06/09/2019 11:21 AM EST) CK 55 20 - 180 U/L [facility] Pathology Specimen Plasma Performing Organization Address City/[facility] Phone Number [facility] CLINICAL PATHOLOGY [address] [place] [address] [facility] [address] [place] [address] Pathology TSH (06/09/2019 11:21 AM EST) TSH 1.270 0.270 - 4.200 u[IU]/mL [facility] Pathology Specimen Plasma Performing Organization Address City/[facility] Phone Number [facility] CLINICAL PATHOLOGY [address] [place] [address] [facility] [address] [place] [address] Pathology NICOLE (06/09/2019 11:21 AM EST) Homogeneous Pattern <50 0 - 49 1/dil [facility] Pathology Speckled Pattern <50 0 - 49 1/dil [facility] Pathology Peripheral Pattern <50 0 - 49 1/dil [facility] Pathology NICOLE,Nucleolar pattern <50 0 - 49 1/dil [facility] Pathology Specimen Serum Performing Organization Address City/[facility] Phone Number [facility] PATHOLOG[facility] [address] [place] [address] [facility] [address] [place] [address] Pathology Sedimentation rate, automated (06/09/2019 11:21 AM EST) Sed Rate - ESR 28 (H) <20 mm/hr [facility] Pathology Specimen EDTA Whole Blood Performing Organization Address City/[facility] Phone Number [facility] [address] [place] [address] [facility] [address] [place] [phone] Pathology Creatinine with GFR (06/09/2019 11:21 AM EST) Creatinine 0.81 0.50 - 0.90 [facility] mg/dL [facility] Pathology GFR Non 87 >60 [facility] [place] Of [place] 2009 CDK-EPI mL/min/1.73m2 Univ Clin Pathology GFR >90 >60 [facility] 2009 CKD-EPI mL/min/1.73m2 [facility] Pathology Specimen Plasma Performing Organization Address [facility] Phone Number [facility] PATHOLOG[facility] [address] [place] [address] [facility] [address] [place] [phone] Pathology C-reactive protein (06/09/2019 11:21 AM EST) C Reactive Protein 11.1 (H) <8.0 mg/L [facility] Pathology Specimen Plasma Performing Organization Address City/[facility] Phone Number [facility] [address] [place] [address] [phone] [facility] [address] [place] [phone] Pathology CBC and Differential (06/09/2019 11:21 AM EST) White Blood Cell 10.0 4 - 10 10*3/uL [facility] Pathology Red Blood Cell 6.05 (H) 4.1 - 5.3 [facility] 10*6/uL Univ Clin Pathology Hemoglobin 11.6 11.5 - 15.5 [facility] g/dL [facility] Pathology Hematocrit 37.2 36 - 45 % [facility] Pathology Mean Cell Volume 61.4 (L) 80 - 96 fL [facility] Pathology Mean Cell Hemoglobin 19.2 (L) 27 - 33 pg [facility] Pathology Mean Cell Hgb Conc 31.2 (L) 32.0 - 36.0 [facility] g/dL [facility] Clin Pathology Red Cell Dist Width 16.4 (H) 11.5 - 14.5 % [facility] Pathology Platelet Count 355 150 - 400 [facility] 10*3/uL Univ Clin Pathology Differential Type Manual Diff [facility] Pathology Neutrophil 69 % [facility] Clin Pathology Lymphocyte 21 % [facility] Clin Pathology Monocyte 2 % [facility] Clin Pathology Eosinophil 3 % [facility] Clin Pathology Basophil 3 % [facility] Pathology Abs Neutrophil 6.95 1.8 - 7.0 [facility] 10*3/uL Univ Clin Pathology Abs Lymphocyte 2.10 1.2 - 4.0 [facility] 10*3/uL Univ Clin Pathology Abs Monocyte 0.19 0 - 0.8 [facility] 10*3/uL Univ Clin Pathology Abs Eosinophil 0.29 0 - 0.5 [facility] 10*3/uL Univ Clin Pathology Abs Basophil 0.29 (H) 0 - 0.2 [facility] 10*3/uL [facility] Clin Pathology Atypical Lymphocytes 2 % [facility] Pathology Abs Atyp Lymph 0.19 (H) 0 10*3/uL [facility] Pathology Elliptocytes 1+ [facility] Pathology Poikilocytosis 1+ [facility] Pathology Specimen EDTA Whole Blood Performing Organization Address City/[facility]/Zipcode Phone Number [facility] PATHOLOG[facility] [address] [place] [address] [facility] [address] [place] [address] Pathology AST (06/09/2019 11:21 AM EST) AST/SGO 15 <32 U/L [facility] Pathology Specimen Plasma Performing Organization Address City/[facility]/Zipcode Phone Number [facility] [address] [place] [address] [facility] Clin [address] [place] [address] Pathology ALT (06/09/2019 11:21 AM EST) ALT/SGP 19 <33 U/L [facility] Pathology Specimen Plasma Performing Organization Address [facility] Phone Number [facility] CLINICAL PATHOLOGY [address] [place] [address] [facility] [address] [place] [address] Pathology Rheumatoid factor (06/09/2019 11:21 AM EST) Rheumatoid factor <10Comment: <14 IU/ml [facility] Univ Clin Pathology Specimen Plasma Performing Organization Address [facility] Phone Number [facility] CLINICAL PATHOLOGY [address] [place] [address] [facility] [address] [place] [address] Pathology documented in this encounter Visit Diagnoses Diagnosis Paresthesia - Primary Disturbance of skin sensation Chronic pain disorder Chronic pain syndrome documented in this encounter
[2019-06-23 10:32] VITALS: BP 148/82
--- NOTE | 2019-06-23 10:42 | UC ---
Throat Pain/Nasal Carlos HPI - HPI Summary HPI Summary: Pt presents with c/oi nasal congestion, sinus pressure and pain X 10 days. Pt has a hx of sinus infections and is concerned that she has one now. - History of Current Complaint Chief Complaint: UCEar Stated Complaint: SINUSES/ L EAR COMP Time Seen by Provider: 06/23/19 10:28 Hx Obtained From: Patient Hx Last Menstrual Period: ablation ?: No Onset/Duration: Gradual Onset, Lasting Days, Still Present, Worse Since - onset Severity: Moderate Pain Intensity: 7 Cough: None Associated Signs & Symptoms: Positive: Sinus Discomfort - Epiglottits Risk Factors Epiglottis Risk Factors: Negative - Allergies/Home Medications Allergies/Adverse Reactions: Allergies Allergy/AdvReac Type Severity Reaction Status Date / Time amoxicillin Allergy Difficulty Verified 06/23/19 10:40 Breathing/Wheezing benzonatate Allergy Airway Verified 06/23/19 10:40 Obstruction codeine Allergy Airway Verified 06/23/19 10:40 Obstruction cyclobenzaprine Allergy Difficulty Verified 06/23/19 10:40 [From Flexeril] Breathing duloxetine Allergy Rash Verified 06/23/19 10:40 erythromycin base Allergy Rash Verified 06/23/19 10:40 methylprednisolone Allergy Difficulty Verified 06/23/19 10:40 [From Medrol] Breathing oseltamivir Allergy Rash Verified 06/23/19 10:40 paroxetine [From Paxil] Allergy Difficulty Verified 06/23/19 10:40 Breathing Penicillins Allergy Swelling Verified 06/23/19 10:40 Of Face,Lips,& Throat tramadol Allergy Difficulty Verified 06/23/19 10:40 Breathing Home Medications: Home Medications Acetaminophen [Tylenol Extra Strength] 1,000 mg PO Q6HR PRN 06/23/19 [History Confirmed 06/23/19] Amitriptyline TAB* [Elavil TAB*] 100 mg PO BEDTIME 06/23/19 [History Confirmed 06/23/19] Bupropion XL* [Wellbutrin XL *] 300 mg PO DAILY 06/23/19 [History Confirmed ] Cholecalciferol TAB* [Vitamin D TAB*] 1,000 unit PO BID 06/23/19 [History Confirmed 06/23/19] Cider Vinegar [Apple Cider Vinegar] 450 mg PO BID 06/23/19 [History Confirmed ] Gemfibrozil TAB* [Lopid TAB*] 600 mg PO BID 06/23/19 [History Confirmed ] Magnesium Oxide [Magnesium] 500 mg PO DAILY 06/23/19 [History Confirmed 06/23/19 ] [place]-3/Dha/Epa/Fish Oil [Fish Oil 500 mg Softgel] 1 cap PO BID 06/23/19 [ History Confirmed 06/23/19] Pantoprazole TAB * [Protonix TAB*] 20 mg PO DAILY 06/23/19 [History Confirmed ] Polyethylene Glycol 3350 [Clearlax] 1 jerson PO DAILY PRN 06/23/19 [History Confirmed 06/23/19] Verapamil TAB* [Calan TAB*] 120 mg PO DAILY 06/23/19 [History Confirmed 06/23/19 ] Vitamin B Complex CAP* [B Complex CAP*] 1 cap PO DAILY 06/23/19 [History Confirmed 06/23/19] PMH/Surg Hx/FS Hx/Imm Hx Previously Healthy: Yes - Surgical History Surgical History: Yes Surgery Procedure, Year, and Place: R knee, tubal ligation. ablation. R hand surgery - Family History Known Family History: Positive: Cardiac Disease - Social History Occupation: Employed Full-time Lives: With Family Alcohol Use: None Substance Use Type: None Smoking Status (MU): Heavy Every Day Tobacco Smoker Type: Cigarettes Amount Used/How Often: 1/2-1 pack day Have You Smoked in the Last Year: Yes Review of Systems All Other Systems Reviewed And Are Negative: Yes Constitutional: Positive: Chills, Fatigue Skin: Positive: Negative Eyes: Positive: Negative ENT: Positive: Ear Ache - left, Sinus Congestion, Sinus Pain/Tenderness Respiratory: Positive: Negative Cardiovascular: Positive: Negative Gastrointestinal: Positive: Negative Genitourinary: Positive: Negative Motor: Positive: Negative Neurovascular: Positive: Negative Musculoskeletal: Positive: Negative Neurological: Positive: Headache Psychological: Positive: Negative Is Patient Immunocompromised?: No Physical Exam Triage Information Reviewed: Yes Appearance: Ill-Appearing Vital Signs: Initial Vital Signs Temp 98.5 F 06/23/19 10:29 Pulse 89 06/23/19 10:29 Resp 17 06/23/19 10:29 BP 148/82 06/23/19 10:29 Pulse Ox 99 06/23/19 10:29 Vital Signs Reviewed: Yes Eye Exam: Normal ENT: Positive: Nasal congestion, TM bulging, Sinus tenderness Dental Exam: Normal Neck exam: Normal Respiratory Exam: Normal Respiratory: Positive: Accessory muscle use Musculoskeletal Exam: Normal Neurological Exam: Normal Psychological Exam: Normal Skin Exam: Normal Throat Pain/Nasal Course/Dx - Differential Dx/Diagnosis Differential Diagnosis/HQI/PQRI: Influenza, Sinusitis, URI Provider Diagnosis: Sinusitis Discharge ED - Sign-Out/Discharge Documenting (check all that apply): Patient Departure All imaging exams completed and their final reports reviewed: No Studies - Discharge Plan Condition: Stable Disposition: HOME Prescriptions: Clarithromycin TAB* [Biaxin 500 MG TAB*] 500 mg PO Q12H #20 tab Guaifenesin/Pseudoephedrne HCl [Mucinex D ER 600-60 mg Tablet] 1 each PO Q12H # 14 tab.er.12h Patient Education Materials: Sinusitis (ED) Referrals: Jada Viramontes MD [Primary Care Provider] - If Needed - Billing Disposition and Condition Condition: STABLE Disposition: Home
== END 2019-06-23 10:50 | disposition home or self-care (01) ==
LOC: UCCORT 10:22
DX: J32.9 Chronic sinusitis, unspecified (principal); F17.210 Nicotine dependence, cigarettes, uncomplicated; Z88.0 Allergy status to penicillin; Z88.8 Allergy status to other drugs, medicaments and biological substances; Z88.5 Allergy status to narcotic agent; Z88.1 Allergy status to other antibiotic agents
CPT/HCPCS: 99212; G0463